=== PATIENT | male | born 1995 ===

== ENCOUNTER 2018-03-06 12:31 | Emergency (ER) | payer OTHER ==
[2018-03-06 12:44] VITALS: BP 133/72
--- NOTE | 2018-03-06 13:45 | UC ---
Complaint Male HPI - HPI Summary HPI Summary: This pt is a 22 y/o male accompanied by his girlfriend presenting to [facility] c/o hematuria since today. Pt reports that prior to today pt has been having itc urination on the inside for the past 2 weeks. Pt denies pain in testicles, scrotum. No external lesions. Denies penile discharge or drainage. No back pain. No rectal pain with bowel movements. No pain with erection, ejaculation. No fever, chills. Pt interviewed with girlfriend and alone - denies any h.o STD. No other partners. He has urinated twice today, the first time he had gross hematuria with blood clots and the second time urine was orange in color. Pt is currently sexually active. No pain with sexual intercourse. Girlfriend reports no pain with sexual intercourse with pt. Denies hx of STDs. NKDA. Pt does not take any medications on a daily basis. He denies FHx of kidney problems. Patients medication reviewed this visit. - History of Current Complaint Chief Complaint: UCRespiratory Stated Complaint: BLOOD IN URINE Time Seen by Provider: 03/06/18 13:40 Hx Obtained From: Patient Onset/Duration: Lasting Days, Still Present Timing: Lasting Days Pain Intensity: 0 Location: Penis Character: Burning Aggravating Factor(s): Voiding Alleviating Factor(s): Nothing Associated Signs And Symptoms: Positive: Hematuria, Dysuria. Negative: Back Pain, Fever, Blood in Stool, Rectal Pain, Nausea, Vomiting(# Of Episodes =), Penile Swelling, Penile Discharge - Allergies/Home Medications Allergies/Adverse Reactions: Allergies Allergy/AdvReac Type Severity Reaction Status Date / Time No Known Allergies Allergy Verified 03/06/18 15:22 Home Medications: Home Medications NK [No Home Medications Reported] 03/06/18 [History Confirmed 03/06/18] PMH/Surg Hx/FS Hx/Imm Hx Previously Healthy: Yes Other Endocrine History: DENIES: diabetes Other Cardiovascular History: DENIES: HTN - Surgical History Surgical History: None - Family History Family History: No FHx of kidney problems - Social History Occupation: Student Lives: Dormitory/Roommates Alcohol Use: Occasionally Substance Use Type: Other Substance Use Comment - Amount & Last Used: Vape Smoking Status (MU): Never Smoked Tobacco Review of Systems Constitutional: Negative Skin: Negative Eyes: Negative ENT: Negative Respiratory: Negative Cardiovascular: Negative Gastrointestinal: Negative Genitourinary: Dysuria, Hematuria, Other - NEG: lesions on penis or scrotum, penile discharge or drainage, rectal pain Motor: Negative Neurovascular: Negative Musculoskeletal: Negative Neurological: Negative Psychological: Negative Is Patient Immunocompromised?: No All Other Systems Reviewed And Are Negative: Yes Physical Exam - Summary Physical Exam Summary: Vital Signs Reviewed: Yes A+Ox3, no distress Eyes: Conjunctiva Clear, [place] EOM intact and full ENT: Hearing grossly normal TM x 2 clear, mmoist, uvula midline, no exudate, no erythema Neck: Positive: Supple Respiratory: Positive: No respiratory distress, No accessory muscle use + CTA throughout no w/r Cardiovascular: RRR nl s1, s2 no m/r CBT <2 sec abd soft + BS +TTP right LQ soft + BS no CVA b/l testes down b/l no lesions, no tenderness, no lesions no discharge non tender epidydmis, no hernia Musculoskeletal Exam: ELLIS x 4 without difficulty Strength Intact, ROM Intact Neurological: Positive: Alert, + sensation throughout Psychological: Positive: Normal Response To Family Skin: Positive: no rash, no ecchymosis Triage Information Reviewed: Yes Vital Signs: Initial Vital Signs Temp 98.1 F 03/06/18 12:41 Pulse 77 03/06/18 12:41 Resp 12 03/06/18 12:41 BP 133/72 03/06/18 12:41 Pulse Ox 99 03/06/18 12:41 Eye Exam: Normal ENT Exam: Normal Dental Exam: Normal Neck exam: Normal Neck: Positive: 1 Respiratory Exam: Normal Cardiovascular Exam: Normal Abdominal Exam: Normal Musculoskeletal Exam: Normal Neurological Exam: Normal Psychological Exam: Normal Skin Exam: Normal Complaint Male Course/Dx - Course Course Of Treatment: Spoke with Dr. Noel, provider at [facility], and is aware of the pt going to the ED via private car. Pt with gross hematuria today. Pt has had uretheral "itching" intermittent x 2 weeks. Pt with RLQ pain with direct palp. recommend pt to ED for further evaluation. pt in agreement with plan - Differential Dx/Diagnosis Provider Diagnoses: abdominal pain. gross hematuria - Physician Notifications Discussed Patient Care With: Connor Noel Time Discussed With Above Provider: 14:04 Instructed by Provider To: Other - Spoke with Dr. Noel, provider at [facility], and is aware of the pt. Discharge - Sign-Out/Discharge Documenting (check all that apply): Patient Departure - Discharge, recommend to ED All imaging exams completed and their final reports reviewed: No Studies - Discharge Plan Condition: Stable Disposition: HOME-RECOMMEND TO ED Patient Education Materials: Hematuria (ED), Abdominal Pain (ED) Referrals: No Primary Care Phys,NOPCP [Primary Care Provider] - Additional Instructions: The doctor that evaluated you today thinks that you need additional testing that can be completed the emergency department. It is recommended that you go directly to emergency department for further evaluation. This evaluation included blood work or imaging. This testing will be directed and decided by the provider that evaluates you at the emergency department. If pain becomes worse, you feel lightheaded, you have uncontrolled vomiting, or you have any other concerns while you are being driven to emergency department as recommended to pullover and contact 911. The emergency department: [place] [address] - Billing Disposition and Condition Condition: STABLE Disposition: Home-Recommend to ED - Attestation Statements Document Initiated by Scribe: Yes Documenting Scribe: Tiffanie Jones Provider For Whom Scribe is Documenting (Include Credential): Rosibel Villatoro MD Scribe Attestation: ITiffanie, scribed for Rosibel Villatoro MD on 03/07/18 at 0820. Scribe Documentation Reviewed: Yes Provider Attestation: The documentation as recorded by the jeanibTiffanie childs accurately reflects the service I personally performed and the decisions made by me, Rosibel Villatoro MD
--- NOTE | 2018-03-06 13:46 | UC ---
- Progress Note Progress Note: Attending Doctor: Rosibel Villatoro ([id number]) Checkroom Chief: Erin Barth ([id number]) Vibratory Pile Driver: NUCONNER (NUANCE) Report Date: 03/06/2018 12:17:00 Report Status: Final Begin of Report Content Patient Name: ARACELI COOL Medical Record#: [id number] Ordering Physician: Rosibel Villatoro MD Acct.#: [id number] : 01/04/1937 Age: 81 Sex: F Location: [facility] Exam Date: 03/06/181216 ADM Status: [facility] ER Order Information: HAND - RIGHT MINIMUM 3 VIEWS Accession Number: [id number] CPT: 24789 Indication: Right hand pain. 4 views of the right hand demonstrates degenerative changes of the trapezium first metacarpal joint as well as the scaphotrapezium joint. Degenerative changes of the proximal and distal interphalangeal joints of the second through fifth digit is noted. 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 Degenerative changes of the proximal and distal interphalangeal joints are also noted. <Electronically signed by Erin Barth MD in OV> 03/06/181336 Dictated By: Erin Barth MD Dictated Date/Time: 03/06/181336 Transcribed Date/Time: 03/06/181334 Copy to: Discharge - Sign-Out/Discharge Documenting (check all that apply): Post-Discharge Follow Up All imaging exams completed and their final reports reviewed: Yes - Discharge Plan Referrals: No Primary Care Phys,NOPCP [Primary Care Provider] -
== END 2018-03-06 14:24 | disposition home health service (06) ==
LOC: UCEAST 12:31
DX: R10.31 Right lower quadrant pain (principal); R31.0 Gross hematuria; R30.0 Dysuria
CPT/HCPCS: 81003; 99202; G0463

== ENCOUNTER 2018-03-06 14:33 | Emergency (ER) | payer SELFPAY ==
--- NOTE | 2018-03-06 15:47 | ED ---
GI/ HPI - HPI Summary HPI Summary: The pt is a 22 y/o male presenting to [facility] c/o of RLQ pain since 1 week ago worsened today. He found a blood clot I n his urine today and went to [facility]. The pain is aggravated by urination. He denies loss of appetite. - History of Current Complaint Chief Complaint: EDUrogenitalProblems Time Seen by Provider: 03/06/18 15:19 Stated Complaint: BLOOD IN URINE Hx Obtained From: Patient Onset/Duration: Started Weeks Ago - 1 week, Still Present, Worse Since - Today morning Pain Intensity: 0 Associated Signs and Symptoms: Positive: Hematuria, Dysuria. Negative: Change in Appetite Aggravating Factor(s): Voiding - Allergy/Home Medications Allergies/Adverse Reactions: Allergies Allergy/AdvReac Type Severity Reaction Status Date / Time No Known Allergies Allergy Verified 03/06/18 15:22 PMH/Surg Hx/FS Hx/Imm Hx Previously Healthy: Yes Endocrine/Hematology History: Denies: Hx Diabetes Cardiovascular History: Denies: Hx Hypertension, Other Cardiovascular Problems/Disorders Sensory History: Denies: Hx Deafness Opthamlomology History: Denies: Hx Legally Blind - Cancer History Cancer Type, Location and Year: None - Surgical History Surgery Procedure, Year, and Place: None - Immunization History Immunizations Up to Date: Yes Infectious Disease History: No Infectious Disease History: Denies: Traveled Outside the [place] in Last 30 Days - Family History Family History: No FHx of kidney problems - Social History Occupation: Student Lives: Dormitory/Roommates Alcohol Use: Occasionally Hx Substance Use: No Substance Use Comment - Amount & Last Used: Vape Smoking Status (MU): Never Smoked Tobacco Review of Systems Constitutional: Negative - Loss of appetite Positive: Abdominal Pain - RLQ Positive: dysuria, hematuria, pain - Pain with urination All Other Systems Reviewed And Are Negative: Yes Physical Exam - Summary Physical Exam Summary: Appearance: The patient is well-nourished in no acute distress and in no acute pain. Skin: The skin is warm and dry and skin color reflects adequate perfusion. HEENT: The head is normocephalic and atraumatic. The pupils are equal and reactive. The conjunctivae are clear and without drainage. Nares are patent and without drainage. Mouth reveals moist mucous membranes and the throat is without erythema and exudate. The external ears are intact. The ear canals are patent and without drainage. The tympanic membranes are intact. Neck: The neck is supple with full range of motion and non-tender. There are no carotid bruits. There is no neck vein distension. Respiratory: Chest is non-tender. Lungs are clear to auscultation and breath sounds are symmetrical and equal. Cardiovascular: Heart is regular rate and rhythm. There is no murmur or rub auscultated. There is no peripheral edema and pulses are symmetrical and equal. Abdomen: The abdomen is soft and non-tender. There are normal bowel sounds heard in all four quadrants and there is no organomegaly palpated. Musculoskeletal: There is no back tenderness noted. Extremities are non-tender with full range of motion. There is good capillary refill. There is no peripheral edema or calf tenderness elicited. Neurological: Patient is alert and oriented to person, place and time. The patient has symmetrical motor strength in all four extremities. Cranial nerves are grossly intact. Deep tendon reflexes are symmetrical and equal in all four extremities. Psychiatric: The patient has an appropriate affect and does not exhibit any anxiety or depression. Triage Information Reviewed: Yes Vital Signs On Initial Exam: Initial Vitals Temp Pulse Resp BP Pulse Ox 98.9 F 79 17 131/59 99 03/06/18 14:34 03/06/18 14:34 03/06/18 14:34 03/06/18 14:34 03/06/18 14:34 Vital Signs Reviewed: Yes Diagnostics - Vital Signs Vital Signs Temp Pulse Resp BP Pulse Ox 03/06/18 14:34 98.9 F 79 17 131/59 99 - Laboratory Result Diagrams: 03/06/18 15:43 Lab Statement: Any lab studies that have been ordered have been reviewed, and results considered in the medical decision making process. GIGU Course/Dx - Course Course Of Treatment: He presented with a complaint of mild dysuria for about a week with one episode of gross hematuria today. He went to the [facility] where he was noted to have right lower quadrant tenderness. This right lower quadrant pain had resolved by the time he arrived here and he had no tenderness. His urine had microscopic hematuria. CBC and CRP were unremarkable. I'm not certain of the etiology of his symptoms which are resolved at this point. Microscopic hematuria could cause mild dysuria on its own. A urine GC and chlamydia has been sent. At this point I recommended outpatient follow-up - Diagnoses Provider Diagnoses: Dysuria Discharge - Sign-Out/Discharge Documenting (check all that apply): Patient Departure - Discharge Plan Condition: Stable Disposition: HOME Patient Education Materials: Dysuria (ED) Referrals: No Primary Care Phys,NOPCP [Primary Care Provider] - [facility] [Outside] Additional Instructions: Return to ED for any new or worsening symptoms Follow up with your PCP in 3 days - Billing Disposition and Condition Condition: STABLE Disposition: Home - Attestation Statements Document Initiated by Scribe: Yes Documenting Scribe: Daksha Vargas Provider For Whom Walkeribe is Documenting (Include Credential): Dr. Connor Noel MD Scribe Attestation: Daksha Marie , scribed for Dr. Connor Noel MD on 03/06/18 at 2123. Scribe Documentation Reviewed: Yes Provider Attestation: The documentation as recorded by the Daksha wilkerson accurately reflects the service I personally performed and the decisions made by me, Dr. Connor Noel MD
[2018-03-06 15:52] LABS: ABS Basophils 0.1 10^3/ul (0-0.2); ABS Eosinophils 0.1 10^3/ul (0-0.6); ABS Lymphocytes 1.2 10^3/ul (1.0-4.8); ABS Monocytes 0.2 10^3/ul (0-0.8); ABS Neutrophils 1.7 10^3/ul (1.5-7.7); ABS Nucleated RBC 0 10^3/ul; Eosinophil % 1.6 % (0-6); Hematocrit 44 % (42-52); Hemoglobin 14.8 g/dl (14.0-18.0); Lymphocyte % 36.2 % (25-47); Mean Corpuscular HGB Conc 34 g/dl (31-36); Mean Corpuscular Hemoglobin 31 pg (27-31); Mean Corpuscular Volume 91 fL (80-94); Mean Platelet Volume 7.9 um3 (7.4-10.4); Nucleated Red Blood Cells % 0; Platelet Count 212 10^3/ul (150-450); Red Blood Count 4.81 10^6/ul (4.00-5.40); Red Cell Distribution Width 13 % (10.5-15); White Blood Count 3.2 10^3/ul (3.5-10.8)
[2018-03-06 16:35] LABS: Urine Appearance Clear; Urine Blood 2+ (Negative); Urine Color Straw; Urine Ketones Negative (Negative); Urine Protein Negative (Negative); Urine Red Blood Cell Trace(0-2/hpf) (Absent); Urine Specific Gravity 1.004 (1.010-1.030); Urine Urobilinogen Negative (Negative); Urine White Blood Cell 2+(11-20/hpf) (Absent)
[2018-03-06 17:31] VITALS: BP 122/69
== END 2018-03-06 17:31 | disposition home or self-care (01) ==
LOC: ED 14:33
DX: R10.31 Right lower quadrant pain (principal); R30.0 Dysuria; R31.9 Hematuria, unspecified
CPT/HCPCS: 36415; 81003; 81015; 85025; 86140; 87086; 99282